=== PATIENT | female | born 1935 | race Two or more races ===

== ENCOUNTER 2018-01-17 20:51 | Observation (INO) | payer MEDICARE, OTHER ==
[~2018-01-17] VITALS: Ht 152.4 cm; Wt 48.4 kg
[~2018-01-17 20:51] MED LIST: AMLO1TAB15 PO; ATOR20TA PO; METO25TA6 PO; RIVA20TA PO
[2018-01-17] MEDS ORDERED: LISI40TA4 PO (21:02)
[2018-01-17 21:13] LABS: BASOPHILS % (AUTO) 0.4 % (0-1); EOSINOPHILS # (AUTO) 0.1 X10'3 (0-0.9); EOSINOPHILS % (AUTO) 1.1 % (0-6); HEMATOCRIT 42.2 % (35.0-45.0); HEMOGLOBIN 14.4 g/dl (12.0-16.0); LYMPHOCYTES # (AUTO) 1.9 X10'3 (1.1-4.8); LYMPHOCYTES % (AUTO) 33.3 % (21-51); MEAN CORPUSCULAR HEMOGLOBIN 31.7 PG (27.0-31.0); MEAN CORPUSCULAR HGB CONC 34.2 % (33.0-36.5); MEAN CORPUSCULAR VOLUME 92.8 FL (78-98); MEAN PLATELET VOLUME 7.8 FL (7.4-10.4); MONOCYTES # (AUTO) 0.6 X10'3 (0-0.9); NEUTROPHILS # (AUTO) 3.1 X10'3 (1.8-7.7); NEUTROPHILS % (AUTO) 54.2 % (42-75); PLATELET COUNT 212 X10'3 (140-440); RED BLOOD COUNT 4.54 X10'6 (4.20-5.60); RED CELL DISTRIBUTION WIDTH 13.1 % (11.5-14.5); WHITE BLOOD COUNT 5.8 X10'3 (4.5-11.0)
[2018-01-17] MEDS ORDERED: diltiazem 5mg/ml 5ml inj. IV ONE ×2 (21:15→21:20)
[2018-01-17 21:26] LABS: INR 1.5 INR; PARTIAL THROMBOPLASTIN TIME 35 SECONDS (22-32); PROTHROMBIN TIME 15.3 SECONDS (9.0-12.0)
[2018-01-17 21:30] LABS: ALANINE AMINOTRANSFERASE 20 U/L (12-78); ALBUMIN 3.5 G/DL (3.4-5.0); ALKALINE PHOSPHATASE 69 IU/L (46-116); ANION GAP 10 (8-16); ASPARTATE AMINO TRANSFERASE 27 U/L (10-37); BILIRUBIN,TOTAL 0.5 MG/DL (0.1-1.0); BLOOD UREA NITROGEN 14 MG/DL (7-18); BUN/CREATININE RATIO 14.6 (6.6-38.0); CALCIUM 8.8 MG/DL (8.5-10.1); CHLORIDE 105 MMOL/L (99-107); CREATININE 0.96 MG/DL (0.40-0.90); GLUCOSE 107 MG/DL (70-104); SODIUM 141 MMOL/L (135-145); TOTAL CARBON DIOXIDE 26.3 MMOL/L (24-32); TOTAL PROTEIN 6.9 G/DL (6.4-8.2); eGFR 56 ML/MIN
[2018-01-17] MEDS ORDERED: potassium 10mEq/100ml NS w/LIDOcaine (10mg/bag) IV ONE (21:40)
[2018-01-17] MEDS ORDERED: potassium Cl 20 mEq SR tablet PO ONE (21:40)
[2018-01-17 21:42] LABS: MAGNESIUM 1.8 MG/DL (1.5-2.4); PHOSPHORUS 2.6 MG/DL (2.3-4.5)
[2018-01-18] MEDS ORDERED: acetaminophen 325mg tablet PO PRN (00:30)
[2018-01-18] MEDS ORDERED: ondansetron/PF 4mg/2ml inj IV PRN (00:30)
[2018-01-18] MEDS ORDERED: aspirin 81mg tab.chew PO ONE (01:05)
[2018-01-18] MEDS ORDERED: heparin 10,000 units/1 ML INJ IV PRN (01:05)
[2018-01-18] MEDS ORDERED: heparin 10,000 units/1 ML INJ IV ONE ×2 (01:05→01:20)
[2018-01-18] MEDS: diltiazem 30mg tablet PO SCH ×2 (01:57→02:00)
[2018-01-18 02:14] VITALS: BP 133/85
[2018-01-18] MEDS ORDERED: potassium Cl 20 mEq SR tablet PO STA (04:03)
[2018-01-18] MEDS: magnesium 1gm/100ml D5W IVPB 100 ML IV SCH ×2 (04:24→05:07)
[2018-01-18 06:00] VITALS: BP 143/77
[2018-01-18] MEDS ORDERED: sotalol 80mg tablet PO SCH (08:00)
[2018-01-18] MEDS: atorvastatin 20mg tablet PO SCH (08:21)
[2018-01-18 09:39] LABS: MAGNESIUM 2.4 MG/DL (1.5-2.4); POTASSIUM 4.5 MMOL/L (3.5-5.1)
[2018-01-18] MEDS: rivaroxaban 20mg tablet PO SCH (10:11)
[2018-01-18 11:00] VITALS: BP 106/68
[2018-01-18 15:00] VITALS: BP 132/74
[2018-01-18 18:00] VITALS: BP 130/70
[2018-01-18] MEDS: amiodarone 200mg tablet PO SCH (21:14)
[2018-01-18 22:00] VITALS: BP 110/60
[2018-01-19 02:00] VITALS: BP 106/59
[2018-01-19 05:36] LABS: BASOPHILS # (AUTO) 0.1 X10'3 (0-0.2); BASOPHILS % (AUTO) 1.3 % (0-1); EOSINOPHILS # (AUTO) 0.2 X10'3 (0-0.9); EOSINOPHILS % (AUTO) 4.2 % (0-6); HEMATOCRIT 41.8 % (35.0-45.0); HEMOGLOBIN 13.1 g/dl (12.0-16.0); LYMPHOCYTES # (AUTO) 1.5 X10'3 (1.1-4.8); LYMPHOCYTES % (AUTO) 35.9 % (21-51); MEAN CORPUSCULAR HEMOGLOBIN 29.1 PG (27.0-31.0); MEAN CORPUSCULAR HGB CONC 31.5 % (33.0-36.5); MEAN CORPUSCULAR VOLUME 92.3 FL (78-98); MEAN PLATELET VOLUME 7.9 FL (7.4-10.4); MONOCYTES # (AUTO) 0.4 X10'3 (0-0.9); MONOCYTES % (AUTO) 9.9 % (2-12); NEUTROPHILS % (AUTO) 48.7 % (42-75); PLATELET COUNT 207 X10'3 (140-440); RED BLOOD COUNT 4.52 X10'6 (4.20-5.60); RED CELL DISTRIBUTION WIDTH 13.4 % (11.5-14.5); WHITE BLOOD COUNT 4.2 X10'3 (4.5-11.0)
[2018-01-19 05:51] LABS: ALANINE AMINOTRANSFERASE 21 U/L (12-78); ALBUMIN 3.1 G/DL (3.4-5.0); ALBUMIN/GLOBULIN RATIO 0.9 (1.1-1.5); ALKALINE PHOSPHATASE 62 IU/L (46-116); ANION GAP 3 (8-16); ASPARTATE AMINO TRANSFERASE 32 U/L (10-37); BILIRUBIN,TOTAL 0.7 MG/DL (0.1-1.0); BLOOD UREA NITROGEN 13 MG/DL (7-18); BUN/CREATININE RATIO 13.1 (6.6-38.0); CALCIUM 8.5 MG/DL (8.5-10.1); CHLORIDE 104 MMOL/L (99-107); CREATININE 0.99 MG/DL (0.40-0.90); GLUCOSE 102 MG/DL (70-104); POTASSIUM 4.8 MMOL/L (3.5-5.1); SODIUM 136 MMOL/L (135-145); TOTAL CARBON DIOXIDE 28.6 MMOL/L (24-32); TOTAL PROTEIN 6.4 G/DL (6.4-8.2); eGFR 54 ML/MIN
[2018-01-19 06:00] VITALS: BP 150/75
[2018-01-19] MEDS: atorvastatin 20mg tablet PO SCH (08:01)
[2018-01-19] MEDS: rivaroxaban 20mg tablet PO SCH (08:01)
[2018-01-19] MEDS: amiodarone 200mg tablet PO SCH ×2 (08:02→13:53)
[2018-01-19] MEDS ORDERED: metoprolol tartrate 25mg tablet PO SCH (08:15)
[2018-01-19] MEDS ORDERED: RIVA20TA PO (08:57)
[2018-01-19] MEDS ORDERED: AMIO200T40 PO ×2 (08:57)
[2018-01-19 11:00] VITALS: BP 140/76
== END 2018-01-19 13:50 | disposition home health service (06) ==
LOC: ER 20:52 → ED HOLD 01-18 00:30 → EDBEDREQ 01-18 01:10 → PCU 3S 01-18 01:32
PROVIDERS: ADMIT Emergency Medicine; ATTEND Family Medicine
DX: I48.91 Unspecified atrial fibrillation (principal); E87.6 Hypokalemia; I11.0 Hypertensive heart disease with heart failure; I50.22 Chronic systolic (congestive) heart failure; E78.5 Hyperlipidemia, unspecified; I34.0 Nonrheumatic mitral (valve) insufficiency; I07.1 Rheumatic tricuspid insufficiency; T82.198A Other mechanical complication of other cardiac electronic device, initial encounter; R79.89 Other specified abnormal findings of blood chemistry; Z79.01 Long term (current) use of anticoagulants; Z95.810 Presence of automatic (implantable) cardiac defibrillator; Z90.710 Acquired absence of both cervix and uterus
CPT/HCPCS: 36415; 71045; 80053; 83735; 83880; 84100; 84132; 84443; 84484; 85025; 85610; 85730; 87070; 93005; 93306; 96365; 96366; 96367; 96368; 99285; G0378; J1644; J3480; J3490

== ENCOUNTER 2018-07-09 11:07 | Emergency (ER) | payer OTHER ==
[~2018-07-09] VITALS: Ht 152.4 cm; Wt 50.0 kg
[~2018-07-09 11:07] MED LIST changes: +AMIO200T40 PO; -AMLO1TAB15 PO; +LISI40TA4 PO; -METO25TA6 PO
--- NOTE | 2018-07-09 11:40 | NUR ---
INTERROGATION OF PACEMAKER
[2018-07-09 11:54] LABS: BASOPHILS # (AUTO) 0.1 X10'3 (0-0.2); BASOPHILS % (AUTO) 0.8 % (0-1); EOSINOPHILS # (AUTO) 0.1 X10'3 (0-0.9); EOSINOPHILS % (AUTO) 1.3 % (0-6); HEMOGLOBIN 13.6 g/dl (12.0-16.0); LYMPHOCYTES # (AUTO) 1.2 X10'3 (1.1-4.8); LYMPHOCYTES % (AUTO) 16.7 % (21-51); MEAN CORPUSCULAR HEMOGLOBIN 31.5 PG (27.0-31.0); MEAN CORPUSCULAR HGB CONC 33.1 g/dL (33.0-36.5); MEAN CORPUSCULAR VOLUME 95.2 FL (78-98); MONOCYTES # (AUTO) 0.7 X10'3 (0-0.9); MONOCYTES % (AUTO) 9.5 % (2-12); NEUTROPHILS # (AUTO) 5.2 X10'3 (1.8-7.7); NEUTROPHILS % (AUTO) 71.7 % (42-75); PLATELET COUNT 227 X10'3 (140-440); RED BLOOD COUNT 4.31 X10'6 (4.20-5.60); RED CELL DISTRIBUTION WIDTH 13.9 % (11.5-14.5); WHITE BLOOD COUNT 7.2 X10'3 (4.5-11.0)
[2018-07-09 12:01] LABS: INR 1.3 INR; PROTHROMBIN TIME 12.6 SECONDS (9.0-12.0)
[2018-07-09 12:04] LABS: ALANINE AMINOTRANSFERASE 36 U/L (12-78); ALBUMIN 3.6 G/DL (3.4-5.0); ALKALINE PHOSPHATASE 68 IU/L (46-116); ANION GAP 8 (8-16); ASPARTATE AMINO TRANSFERASE 34 U/L (10-37); BILIRUBIN,TOTAL 0.6 MG/DL (0.1-1.0); BLOOD UREA NITROGEN 17 MG/DL (7-18); BUN/CREATININE RATIO 16.3 (6.6-38.0); CALCIUM 8.6 MG/DL (8.5-10.1); CHLORIDE 105 MMOL/L (99-107); CREATININE 1.04 MG/DL (0.40-0.90); GLUCOSE 99 MG/DL (70-104); POTASSIUM 3.6 MMOL/L (3.5-5.1); SODIUM 140 MMOL/L (135-145); TOTAL CARBON DIOXIDE 27.2 MMOL/L (24-32); TOTAL PROTEIN 7.1 G/DL (6.4-8.2); eGFR 51 ML/MIN
[2018-07-09 12:12] LABS: MAGNESIUM 2.1 MG/DL (1.5-2.4)
[2018-07-09 12:46] VITALS: BP 154/65
== END 2018-07-09 13:01 | disposition home or self-care (01) ==
LOC: ER 11:09
DX: R07.89 Other chest pain (principal); Z95.0 Presence of cardiac pacemaker; Z79.899 Other long term (current) drug therapy
CPT/HCPCS: 36415; 71045; 80053; 83735; 83880; 84484; 85025; 85610; 93005; 99284

== ENCOUNTER 2018-08-29 05:46 | Emergency (ER) | payer MEDICARE, OTHER ==
[~2018-08-29] VITALS: Ht 157.5 cm; Wt 59.1 kg
[2018-08-29 06:33] LABS: BASOPHILS # (AUTO) 0.1 X10'3 (0-0.2); BASOPHILS % (AUTO) 1.7 % (0-1); EOSINOPHILS # (AUTO) 0.2 X10'3 (0-0.9); EOSINOPHILS % (AUTO) 3.9 % (0-6); HEMATOCRIT 41.1 % (35.0-45.0); HEMOGLOBIN 13.6 g/dl (12.0-16.0); MEAN CORPUSCULAR HEMOGLOBIN 31.4 PG (27.0-31.0); MEAN CORPUSCULAR HGB CONC 33.2 g/dL (33.0-36.5); MEAN CORPUSCULAR VOLUME 94.7 FL (78-98); MEAN PLATELET VOLUME 7.7 FL (7.4-10.4); MONOCYTES # (AUTO) 0.6 X10'3 (0-0.9); MONOCYTES % (AUTO) 11.9 % (2-12); NEUTROPHILS # (AUTO) 2.9 X10'3 (1.8-7.7); NEUTROPHILS % (AUTO) 61.5 % (42-75); PLATELET COUNT 237 X10'3 (140-440); RED BLOOD COUNT 4.34 X10'6 (4.20-5.60); RED CELL DISTRIBUTION WIDTH 14.2 % (11.5-14.5); WHITE BLOOD COUNT 4.7 X10'3 (4.5-11.0)
[2018-08-29 06:51] LABS: INR 1.5 INR; PARTIAL THROMBOPLASTIN TIME 39 SECONDS (22-32)
[2018-08-29 06:52] LABS: ALANINE AMINOTRANSFERASE 38 U/L (12-78); ALBUMIN 3.5 G/DL (3.4-5.0); ALKALINE PHOSPHATASE 64 IU/L (46-116); ANION GAP 6 (8-16); ASPARTATE AMINO TRANSFERASE 32 U/L (10-37); BILIRUBIN,TOTAL 0.5 MG/DL (0.1-1.0); BLOOD UREA NITROGEN 16 MG/DL (7-18); CHLORIDE 105 MMOL/L (99-107); CREATININE 1.14 MG/DL (0.40-0.90); GLUCOSE 98 MG/DL (70-104); POTASSIUM 4.2 MMOL/L (3.5-5.1); SODIUM 139 MMOL/L (135-145); TOTAL CARBON DIOXIDE 28.2 MMOL/L (24-32); eGFR 46 ML/MIN
--- NOTE | 2018-08-29 07:09 | NUR ---
Called placed to [employer] to setup interigation of patient's device. Awaiting call back from rep .
--- NOTE | 2018-08-29 07:30 | NUR ---
[employer] machine used to interogate device.
--- NOTE | 2018-08-29 08:02 | NUR ---
Call placed to [employer]. Rep will be calling back to review interogation report.
[2018-08-29 09:06] VITALS: BP 109/59
== END 2018-08-29 09:07 | disposition home or self-care (01) ==
LOC: ER 05:46
DX: R42 Dizziness and giddiness (principal); I48.91 Unspecified atrial fibrillation; I10 Essential (primary) hypertension; Z95.0 Presence of cardiac pacemaker
CPT/HCPCS: 36415; 71045; 80053; 84484; 85025; 85610; 85730; 93005; 99284

== ENCOUNTER 2019-07-18 17:15 | Emergency (ER) | payer OTHER ==
[~2019-07-18] VITALS: Ht 157.5 cm; Wt 45.5 kg
[~2019-07-18 17:15] MED LIST changes: -AMIO200T40 PO; +AMIO200T61 PO; +BENZ200C53 PO; +CEFD300C3 PO; -LISI40TA4 PO; +METO-395 PO; +OLME40TA13 PO; +RIVA15TA PO; -RIVA20TA PO
[2019-07-18 17:50] LABS: BASOPHILS # (AUTO) 0.1 X10'3 (0-0.2); EOSINOPHILS % (AUTO) 0.5 % (0-6); HEMATOCRIT 41.6 % (35.0-45.0); HEMOGLOBIN 14.1 g/dl (12.0-16.0); LYMPHOCYTES % (AUTO) 13.9 % (21-51); MEAN CORPUSCULAR HGB CONC 33.9 g/dL (33.0-36.5); MEAN CORPUSCULAR VOLUME 94.5 FL (78-98); MEAN PLATELET VOLUME 7.4 FL (7.4-10.4); MONOCYTES # (AUTO) 0.3 X10'3 (0-0.9); NEUTROPHILS # (AUTO) 5.9 X10'3 (1.8-7.7); NEUTROPHILS % (AUTO) 80.6 % (42-75); PLATELET COUNT 270 X10'3 (140-440); RED CELL DISTRIBUTION WIDTH 13.6 % (11.5-14.5); WHITE BLOOD COUNT 7.3 X10'3 (4.5-11.0)
[2019-07-18 18:03] LABS: ALANINE AMINOTRANSFERASE 19 U/L (12-78); ALBUMIN 3.4 G/DL (3.4-5.0); ALBUMIN/GLOBULIN RATIO 0.9 (1.1-1.5); ALKALINE PHOSPHATASE 73 IU/L (46-116); ANION GAP 5 (8-16); ASPARTATE AMINO TRANSFERASE 21 U/L (10-37); BILIRUBIN,TOTAL 0.5 MG/DL (0.1-1.0); BLOOD UREA NITROGEN 9 MG/DL (7-18); BUN/CREATININE RATIO 9.7 (6.6-38.0); CALCIUM 8.6 MG/DL (8.5-10.1); CHLORIDE 99 MMOL/L (99-107); CREATININE 0.93 MG/DL (0.40-0.90); GLUCOSE 131 MG/DL (70-104); POTASSIUM 3.7 MMOL/L (3.5-5.1); SODIUM 133 MMOL/L (135-145); TOTAL CARBON DIOXIDE 29.1 MMOL/L (24-32); TOTAL PROTEIN 7.4 G/DL (6.4-8.2); eGFR 58 ML/MIN
[2019-07-18 18:11] LABS: MAGNESIUM 2.1 MG/DL (1.5-2.4)
[2019-07-18] MEDS ORDERED: meclizine 12.5mg tablet PO ONE (18:50)
[2019-07-18] MEDS ORDERED: MECL-159 PO (18:53)
[2019-07-18 19:12] VITALS: BP 157/84
== END 2019-07-18 19:13 | disposition home or self-care (01) ==
LOC: ER 17:16
DX: R42 Dizziness and giddiness (principal); R11.10 Vomiting, unspecified; I48.91 Unspecified atrial fibrillation; I10 Essential (primary) hypertension; Z95.0 Presence of cardiac pacemaker; Z79.2 Long term (current) use of antibiotics; Z79.899 Other long term (current) drug therapy
CPT/HCPCS: 36415; 71045; 80053; 83735; 83880; 84484; 85025; 93005; 99285; J8597